=== PATIENT | male | born 1965 | race Caucasian/White ===

== ENCOUNTER 2021-08-06 23:26 | Emergency (ER) | payer BC ==
[2021-08-07] MEDS ORDERED: Oxymetazoline HCl 0.05% (30 ML BOT) ONE (00:07)
== END 2021-08-07 01:59 | disposition home or self-care (01) ==
LOC: ERS 23:26
DX: R04.0 Epistaxis (principal); I10 Essential (primary) hypertension; M19.90 Unspecified osteoarthritis, unspecified site; F17.220 Nicotine dependence, chewing tobacco, uncomplicated; Z79.899 Other long term (current) drug therapy
CPT/HCPCS: 30903

== ENCOUNTER 2021-09-28 10:42 | Outpatient (CLI) | payer BC | END 2021-09-28 10:43 | disposition home or self-care (01) | LOC: RAD 10:42 | PROVIDERS: ATTEND Family Medicine | DX: M25.562 Pain in left knee (principal) ==

== ENCOUNTER 2022-07-08 08:48 | Outpatient (CLI) | payer BC | END 2022-07-08 08:49 | disposition home or self-care (01) | LOC: BICRAD 08:48 | PROVIDERS: ATTEND Family Medicine | DX: M54.2 Cervicalgia (principal); M47.812 Spondylosis without myelopathy or radiculopathy, cervical region | CPT/HCPCS: 72040 ==

== ENCOUNTER 2022-10-26 05:44 | Day surgery (SDC) | payer BC ==
[2022-10-25 12:01] VITALS: BMI 43.4
[2022-10-26] MEDS ORDERED: Dexamethasone 4 mg/ml Vial ONE (06:38)
[2022-10-26] MEDS ORDERED: Bupivacaine HCl 0.5%/Epinephrine 1:200,000/PF 30 ml Vial ONE (06:38)
[2022-10-26] MEDS ORDERED: CEFAZOLIN 2 GM VIAL ONE (07:02)
[2022-10-26] MEDS ORDERED: Sodium Chloride 0.9% 100 ML ONE (07:02)
[2022-10-26] MEDS ORDERED: Ketorolac Tromethamine 30 MG/ML VIAL ONE (07:12)
[2022-10-26] MEDS ORDERED: Ondansetron PF 4 MG/2 ML Vial ONE (07:12)
[2022-10-26] MEDS ORDERED: Dexamethasone 20 MG/5 ML VIAL ONE (07:12)
[2022-10-26] MEDS ORDERED: PROPOFOL 200 MG/20 ML VIAL ONE (07:12)
[2022-10-26] MEDS ORDERED: fentaNYL PF 100 MCG/2 ML SYRINGE ONE (07:16)
[2022-10-26] MEDS ORDERED: Bupivacaine PF 0.5% 30 ML VIAL ONE (07:52)
== END 2022-10-26 09:45 | disposition home or self-care (01) ==
LOC: UNDOADMIN 05:44 → SURG A 05:44 → SDC 05:44 → EDSTATUS 11:11
PROVIDERS: ATTEND Thoracic Surgery (Cardiothoracic Vascular Surgery)
PROC: 03BT0ZX Excision of Left Temporal Artery, Open Approach, Diagnostic (ICD-10-PCS; principal; 2022-10-26)
DX: M31.6 Other giant cell arteritis (principal); I10 Essential (primary) hypertension; I48.92 Unspecified atrial flutter; I48.0 Paroxysmal atrial fibrillation; F17.290 Nicotine dependence, other tobacco product, uncomplicated; M19.90 Unspecified osteoarthritis, unspecified site; M10.9 Gout, unspecified; Z79.52 Long term (current) use of systemic steroids; Z79.01 Long term (current) use of anticoagulants; Z79.899 Other long term (current) drug therapy
CPT/HCPCS: 88305; J1100; J1885; J2405; J2704; J3490; S0020